=== PATIENT | male | born 1955 ===

== ENCOUNTER 2020-01-23 16:51 | Emergency (ER) | payer OTHER ==
[~2020-01-23] VITALS: Ht 175.3 cm; Wt 83.6 kg
[2020-01-23 17:10] VITALS: Ht 175.3 cm; Wt 83.6 kg
[2020-01-23] MEDS ORDERED: LIPITOR20 MG PO (17:12)
[2020-01-23] MEDS ORDERED: GLUCOPHAGE850 MG PO (17:12)
[2020-01-23 17:59] LABS: BASOPHILS 0.3 % (0-2); EOSINOPHILS 2.9 % (0-7); HEMOGLOBIN 12.4 g/dL (13.5-17.5); LYMPHOCYTES 41.2 % (15-50); MCH 31.7 pg (26.0-34.0); MCHC 32.6 g/dL (31.0-37.0); MCV 97.2 fL (80.0-100.0); MEAN PLATELET VOLUME 10.6 fL (7.4-10.4); MONOCYTES 5.6 % (2-11); PLATELET COUNT 166 10x3/uL (130-400); RBC 3.91 10x6/uL (4.20-6.10); RDW 12.9 % (11.5-14.5); WBC 3.4 10x3/uL (4.8-10.8)
[2020-01-23 18:13] LABS: CALC OSMOLALITY 283 mosm/kg (275-300); CALCIUM 9.1 mg/dL (8.5-10.1); CARBON DIOXIDE 30.8 mmol/L (21.0-32.0); CHLORIDE - SERUM 103 mmol/L (98-107); CREATININE - SERUM 1.3 mg/dL (0.6-1.3); GLUCOSE 109 mg/dL (74-106); POTASSIUM - SERUM 4.1 mmol/L (3.5-5.1); SODIUM 140 mmol/L (136-145); UREA NITROGEN 23 mg/dL (7-18); eGFR NON AFRICAN AMERICAN 59 mL/min (90-120)
[2020-01-23 18:32] LABS: ALBUMIN 3.6 g/dL (3.4-5.0); ALKALINE PHOSPHATASE 70 U/L (30-120); ALT (SGPT) 8 U/L (10-68); C-REACTIVE PROTEIN < 0.2 mg/dL (0.0-0.9); CKMB 1.3 U/L (0.0-3.6); CREATINE KINASE 133 UL (21-232); FERRITIN 219 ng/mL (3-244); PROTEIN - SERUM 7.7 g/dL (6.4-8.2); TROPONIN-I < 0.017 ng/mL (0.000-0.060)
[2020-01-23 18:49] LABS: INR 1.03 (0.85-1.17); PROTIME 13.5 SECONDS (11.6-15.0)
[2020-01-23] MEDS ORDERED: ZPAK PO (19:36)
[2020-01-23] MEDS ORDERED: PROAIR HFA8.5 G1 INH (19:39)
[2020-01-23] MEDS ORDERED: TESSALON PERLE100 MG PO (19:39)
[2020-01-23 20:25] VITALS: BP 139/72
== END 2020-01-23 20:25 | disposition home or self-care (01) ==
LOC: D.ER 16:51
PROVIDERS: Family Medicine
DX: J40 Bronchitis, not specified as acute or chronic (principal); E11.9 Type 2 diabetes mellitus without complications; I10 Essential (primary) hypertension; E78.5 Hyperlipidemia, unspecified; Z79.84 Long term (current) use of oral hypoglycemic drugs